=== PATIENT | female | born 1990 | race Caucasian/White ===

== ENCOUNTER → 2020-04-11 12:56 | Outpatient (BNVA) | payer OTHER, SELFPAY | PROVIDERS: Family Provider Family Medicine; PCP Family Medicine; Visit Provider Nurse Practitioner Family | DX: J06.9 Acute upper respiratory infection, unspecified (principal) | CPT/HCPCS: 87635 ==

== ENCOUNTER → 2022-03-07 09:31 | Outpatient (BNVA) | payer OTHER, SELFPAY | PROVIDERS: Family Provider Family Medicine; Visit Provider Emergency Medicine | DX: R68.89 Other general symptoms and signs (principal); J98.8 Other specified respiratory disorders; B97.89 Other viral agents as the cause of diseases classified elsewhere | CPT/HCPCS: 87400; 87426 ==